=== PATIENT | male | born 1985 | race Caucasian/White ===

== ENCOUNTER 2018-07-06 12:31 | Emergency (ER) | payer BC ==
[~2018-07-06] VITALS: Ht 170.1 cm; Wt 84.4 kg
[2018-07-06] MEDS ORDERED: ADDERALL 20 MG20 MG PO (12:34)
[2018-07-06] MEDS ORDERED: PREDNISONE20 M1 PO (14:33)
[2018-07-06] MEDS ORDERED: ROBAXIN500 M1 PO (14:33)
== END 2018-07-06 14:37 | disposition home or self-care (01) ==
LOC: ED 12:31
DX: M54.41 Lumbago with sciatica, right side (principal); M54.6 Pain in thoracic spine; F17.200 Nicotine dependence, unspecified, uncomplicated; Z79.899 Other long term (current) drug therapy; W01.198A Fall on same level from slipping, tripping and stumbling with subsequent striking against other object, initial encounter; Y93.89 Activity, other specified; Y92.89 Other specified places as the place of occurrence of the external cause; Y99.8 Other external cause status